=== PATIENT | female | born 1995 | race Two or more races ===

== ENCOUNTER 2024-12-21 13:00 | Emergency (ER) | payer OTHER ==
[2024-12-21 13:15] VITALS: BP 102/80; PULSE 80; RESP 18; TEMP 98.4; BMI 25.4
[2024-12-21] MEDS ORDERED: IBUPROFEN 600 MG TABLET (FP) PO ONE (14:44)
[2024-12-21] MEDS: IBUPROFEN 600 MG TABLET (FP) PO ONE (14:45)
== END 2024-12-21 14:56 | disposition home or self-care (01) ==
LOC: JERFT 13:00
DX: S63.615A Unspecified sprain of left ring finger, initial encounter (principal); Y04.0XXA Assault by unarmed brawl or fight, initial encounter
CPT/HCPCS: 73130-TC-LT-FY; 99283-25